=== PATIENT | male | born 1960 | race Caucasian/White ===

== ENCOUNTER 2020-06-29 08:17 | Outpatient (REF) | payer BC, SELFPAY ==
[2020-06-29 09:42] LABS: Hematocrit 43.8 % (42-52); Hemoglobin 14.9 g/dl (14.0-18.0); Mean Corpuscular Hemoglobin 31.1 pg (27.0-33.0); Mean Corpuscular Volume 91.4 fL (80-98); Mean Platelet Volume 9.1 fL (9.4-12.4); Platelet Count 229 X10*3/uL (160-400); Red Blood Count 4.79 X10*6/uL (4.60-5.80); Red Cell Distribution Width 11.9 % (11.0-16.0); White Blood Count 7.3 X10*3/uL (4.8-10.8)
[2020-06-29 09:53] LABS: Alanine Aminotransferase 37 U/L (0-40); Albumin Level 4.3 g/dL (3.5-5.0); Alkaline Phosphatase 134 U/L (39-117); Aspartate Amino Transferase 28 U/L (5-37); Bilirubin Direct 0.3 mg/dL (0.0-0.5); Bilirubin Total 0.9 mg/dL (0.0-1.0); Lipase 39 U/L (8-78); Total Protein 6.8 g/dL (6.5-8.0)
[2020-07-04 09:01] LABS: 6-MMPN <500 (<5700); 6-TGN 67 (235-400)
== END 2020-06-29 08:18 | disposition home or self-care (01) ==
LOC: HO.LAB 08:17
PROVIDERS: PCP Internal Medicine; Visit Provider Internal Medicine Gastroenterology
DX: K50.012 Crohn's disease of small intestine with intestinal obstruction (principal)
CPT/HCPCS: 36415; 80076; 83690; 85027

== ENCOUNTER 2020-08-13 09:09 | Outpatient (REF) | payer BC, SELFPAY ==
[2020-08-13 10:12] LABS: MANUAL DIFF FLAG NO
[2020-08-13 10:21] LABS: Basophils Percent Auto 0.3 % (0-2); Hematocrit 41.8 % (42-52); Hemoglobin 14.3 g/dl (14.0-18.0); Imm Gran Abs Auto 0.03 X10*3/uL (0.00-0.03); Imm Gran Pct Auto 0.5 % (0.0-0.4); Lymphocytes Percent Auto 15.3 % (20-40); Mean Corpuscular HGB Conc 34.2 g/dl (31.0-36.0); Mean Corpuscular Hemoglobin 31.5 pg (27.0-33.0); Mean Corpuscular Volume 92.1 fL (80-98); Mean Platelet Volume 9.1 fL (9.4-12.4); Monocytes Absolute Auto 0.7 X10*3/uL (0.1-1.2); Neutrophils Absolute Auto 4.8 X10*3/uL (2.0-8.3); Neutrophils Percent Auto 73.9 % (45-73); Platelet Count 229 X10*3/uL (160-400); Red Blood Count 4.54 X10*6/uL (4.60-5.80); Red Cell Distribution Width 13.2 % (11.0-16.0); White Blood Count 6.5 X10*3/uL (4.8-10.8)
[2020-08-13 10:47] LABS: Alanine Aminotransferase 22 U/L (0-40); Albumin Level 4.1 g/dL (3.5-5.0); Alkaline Phosphatase 129 U/L (39-117); Aspartate Amino Transferase 21 U/L (5-37); Bilirubin Direct 0.2 mg/dL (0.0-0.5); Bilirubin Total 0.7 mg/dL (0.0-1.0); Lipase 39 U/L (8-78); Total Protein 6.4 g/dL (6.5-8.0)
[2020-08-19 11:11] LABS: 6-MMPN <500 (<5700); 6-TGN 87 (235-400)
== END 2020-08-13 09:10 | disposition home or self-care (01) ==
LOC: HO.LAB 09:09
PROVIDERS: PCP Internal Medicine; Visit Provider Internal Medicine Gastroenterology
DX: K50.012 Crohn's disease of small intestine with intestinal obstruction (principal)
CPT/HCPCS: 36415; 80076; 83690; 85025

== ENCOUNTER 2020-10-09 09:26 | Outpatient (REF) | payer BC, SELFPAY ==
[2020-10-09 10:23] LABS: MANUAL DIFF FLAG NO
[2020-10-09 10:29] LABS: Basophils Percent Auto 0.4 % (0-2); Eosinophils Absolute Auto 0.2 X10*3/uL (0.0-0.4); Eosinophils Percent Auto 2.8 % (0-4); Hematocrit 44.4 % (42-52); Hemoglobin 15.2 g/dl (14.0-18.0); Imm Gran Abs Auto 0.03 X10*3/uL (0.00-0.03); Imm Gran Pct Auto 0.5 % (0.0-0.4); Lymphocytes Absolute Auto 0.9 X10*3/uL (1.2-4.9); Mean Corpuscular HGB Conc 34.2 g/dl (31.0-36.0); Mean Corpuscular Hemoglobin 31.7 pg (27.0-33.0); Mean Corpuscular Volume 92.5 fL (80-98); Mean Platelet Volume 9.4 fL (9.4-12.4); Monocytes Absolute Auto 0.7 X10*3/uL (0.1-1.2); Monocytes Percent Auto 13.1 % (2-11); Neutrophils Absolute Auto 3.8 X10*3/uL (2.0-8.3); Neutrophils Percent Auto 67.2 % (45-73); Platelet Count 188 X10*3/uL (160-400); Red Cell Distribution Width 13.5 % (11.0-16.0); White Blood Count 5.6 X10*3/uL (4.8-10.8)
[2020-10-09 10:38] LABS: Alanine Aminotransferase 19 U/L (0-40); Albumin Level 4.3 g/dL (3.5-5.0); Alkaline Phosphatase 137 U/L (39-117); Aspartate Amino Transferase 19 U/L (5-37); Bilirubin Direct 0.2 mg/dL (0.0-0.5); Bilirubin Total 0.5 mg/dL (0.0-1.0); Lipase 37 U/L (8-78); Total Protein 6.7 g/dL (6.5-8.0)
== END 2020-10-09 09:27 | disposition home or self-care (01) ==
LOC: HO.LAB 09:26
PROVIDERS: PCP Internal Medicine; Visit Provider Internal Medicine Gastroenterology
DX: K50.012 Crohn's disease of small intestine with intestinal obstruction (principal)
CPT/HCPCS: 36415; 80076; 80299; 83690; 85025

== ENCOUNTER 2020-11-11 11:35 | Day surgery (SDC) | payer BC, SELFPAY ==
[2020-11-05 15:25] VITALS: BMI 32.1
[2020-11-06 10:52] VITALS: BMI 32.1
--- NOTE | 2020-11-10 10:13 | P.CONAN_ITS ---
Documented by User: Bridgette Mcneal NP 11/10/20 10:14 HPI - Anesthesia Eval Consult details Narrative: 60yo M for ?Colonoscopy [facility] Past Medical History Medical History Arrhythmia Asthma COVID-19 vaccine series completed Crohn's disease Sleep apnea Surgical History Surgical History H/O colonoscopy History of ileostomy History of reversal of ileostomy History of total right knee replacement Hx of hernia repair Hx of knee surgery Social History Social History Patient Tobacco Use Status: Tobacco use Unknown Are you DNR?: No Advance Directives Information Provided: Yes (states is his ) Advance Directives on File: No Recently lost weight without trying: No Eating poorly because of decreased appetite: No Nutrition Risks: No Nutritional Risk Meds Allergies Allergy/AdvReac Type Severity Reaction Status Date / Time Penicillins Allergy Unknown hives/face Verified 11/06/20 10:51 swelling Home Medications Medication Instructions Recorded Confirmed Last Taken Type azathioprine 50 mg tablet (Imuran) 200 mg PO QAM 11/06/20 11/06/20 Unknown History loperamide 2 mg capsule 2 mg PO DAILY 11/06/20 11/06/20 Unknown History Exam Exam Date and Time: November 10, 2020 1013 Height,Weight and Vital Signs: Height 5 ft 8 in Weight 95.708 kg Assessment and Plan Assessment Anesthesia Assessment: Chart Reviewed Documented by User: Bridget Roland MD 11/11/20 12:52 [facility] Past Medical History Medical History Arrhythmia Asthma COVID-19 vaccine series completed Crohn's disease Sleep apnea Surgical History Surgical History H/O colonoscopy History of ileostomy History of reversal of ileostomy History of total right knee replacement Hx of hernia repair Hx of knee surgery History of Problems with Anesthesia: No Social History Social History Patient Tobacco Use Status: Tobacco use Unknown Are you DNR?: No Advance Directives Information Provided: Yes (states is his ) Advance Directives on File: No Recently lost weight without trying: No Eating poorly because of decreased appetite: No Nutrition Risks: No Nutritional Risk Meds Allergies Allergy/AdvReac Type Severity Reaction Status Date / Time Penicillins Allergy Unknown hives/face Verified 11/06/20 10:51 swelling Home Medications Medication Instructions Recorded Confirmed Last Taken Type azathioprine 50 mg tablet (Imuran) 200 mg PO QAM 11/06/20 11/06/20 Unknown History loperamide 2 mg capsule 2 mg PO DAILY 11/06/20 11/06/20 Unknown History Exam Airway Mallampati Class: III (Full anderson) TM Dist: >3cm Neck ROM: Full Loose/Missing/Broken Teeth: No Heart: RRR Lungs: CTA Assessment and Plan Assessment Anesthesia Assessment: Anesthesia Plan Discussed Final Anesthetic Review History of Problems with Anesthesia: No NPO: Yes ASA Class: II Final Preanesthetic Review: Meds/Allgs Chart Reviewed, Consent Obtained/Reviewed and Anes Risks/Benef Reviewed Patient Risk: Low Procedure Risk: Low Anesthetic Plan Anesthetic Plan: MAC: Disposition: Standard PACU
[2020-11-11 12:01] VITALS: BP 158/82; PULSE 65; RESP 18; TEMP 36.1; O2SAT 98
[2020-11-11] MEDS: Lactated Ringers 1,000 ML 100 ML IVCONT (12:15)
--- NOTE | 2020-11-11 13:02 | MHC.SHP ---
Pre-Procedural Eval Section A Date of Service: 11/11/20 Section B Chief Complaint: crohns Details of Present Illness: see h&p no changes Relevant Family History (Specify if Yes): No Relevant Social History: None Present Medications: see Short Stay Collaborative assessment Medical History: No relevant PMH Allergies: Allergies Allergy/AdvReac Type Severity Reaction Status Date / Time Penicillins Allergy Unknown hives/face Verified 11/06/20 10:51 swelling Review of Systems Sugical H&P ROS: Negative: Constitution, Cardiovascular, Respiratory, Neurological, Psychiatric, Hem-Onc, Allergic/Immunologic, Gastrointestinal, Genitourinary, Musculoskeletal, Integumentary, Endocrine and Eyes/Ears/Nose/Throat Exam Surgical H&P Exam: Normal: HEENT, Normal: Heart, Normal: Lungs, Normal: Extremities, Normal: Abdomen, Normal: Skin and Normal: Neurological Plan Diagnosis/Plan: Unchanged I have reviewed the history and physical and performed a pertinent physical examination on my patient. No changes have occurred unless specified.
[2020-11-11 13:28] VITALS: BP 128/79; PULSE 62; RESP 18; TEMP 36.2; O2SAT 100
--- NOTE | 2020-11-11 13:38 | PM.OP ---
Brief Operative Note Date of Service: 11/11/20 Pre-op diagnosis: crohns Procedure: colonoscopy Surgeon: Donato Rios Anesthesia: MAC Was an [employer] used for this Procedure?: No Estimated blood loss (mL): 5 Pathology: other (biopsies ileum and colon) Condition: stable Disposition: PACU
[2020-11-11 13:43] VITALS: BP 134/77; PULSE 57; RESP 18; TEMP 36.2; O2SAT 98
--- NOTE | 2020-11-11 18:43 | OP_ITS ---
SURGEON: Donato Rios MD INDICATIONS: Crohn disease. PREOPERATIVE DIAGNOSIS: POSTOPERATIVE DIAGNOSIS: PROCEDURE PERFORMED: Colonoscopy to the neoterminal ileum with biopsy. ESTIMATED BLOOD LOSS: COMPLICATIONS: ANESTHESIA: ASSISTANTS: SPECIMENS: MEDICATIONS: Monitored anesthesia care. DESCRIPTION OF PROCEDURE: History and physical performed. The risks and benefits of the procedure were explained to the patient. Informed consent was obtained. The patient was placed in left lateral decubitus position. A digital rectal exam was performed and was found to be normal. The Olympus pediatric video colonoscope was introduced into the rectum and advanced to the ileocolonic anastomosis. Examination was performed and the scope was removed. He tolerated the procedure well and was returned to recovery area in stable condition. FINDINGS: The neoterminal ileum was examined over the last 2.5 cm. This appeared to show changes of Crohn disease with aphthous ulceration that was measuring less than 10 mm. This extended to the anastomosis. There was no stricturing identified. The neoterminal ileum could not be further examined as the scope could not be further advanced due to looping. Biopsies were obtained from the neoterminal ileum. The visualized colonic mucosa was within normal limits without evidence of active Crohn disease. Biopsies were obtained from the right colon, left colon, and rectosigmoid. Diverticulosis was present throughout the colon. IMPRESSION: Crohn disease. RECOMMENDATIONS: 1. Follow up the biopsy results. 2. Continue azathioprine. MD CYN Galvan/OSIEL / [id number]
== END 2020-11-11 14:30 | disposition home or self-care (01) ==
PROVIDERS: PCP Internal Medicine; Visit Provider Internal Medicine Gastroenterology
PROC: 0DJD8ZZ Inspection of Lower Intestinal Tract, Via Natural or Artificial Opening Endoscopic (ICD-10-PCS; CPT 45378; principal; 2020-11-11 13:00)
DX: K50.90 Crohn's disease, unspecified, without complications (principal); K52.9 Noninfective gastroenteritis and colitis, unspecified; K56.2 Volvulus; K57.30 Diverticulosis of large intestine without perforation or abscess without bleeding; Z98.0 Intestinal bypass and anastomosis status
CPT/HCPCS: 45380; 88305